=== PATIENT | female | born 1995 | race Caucasian/White ===

== ENCOUNTER → 2020-12-07 | Outpatient (CLI) | payer SELFPAY ==
[~2020-12-07] MED LIST: PEPCID20 M1 PO; PRENATAL VITAM1 EACH PO; TYLENOL 325MG325 MG PO; ZOFRAN4 M1 PO
[2020-12-07 20:40] LABS: CLUE CELLS PRESENT (Not Observd)
== END ==
LOC: LAB 19:36
PROVIDERS: Nurse Practitioner Family
DX: R10.2 Pelvic and perineal pain (principal)
CPT/HCPCS: Q0111